=== PATIENT | female | born 1970 | race Two or more races ===

== ENCOUNTER 2024-06-14 10:59 | Emergency (ER) | payer MEDICAID ==
[~2024-06-14] VITALS: Ht 162.6 cm; Wt 64.9 kg
[2024-06-14 11:07] VITALS: BP 174/81; PULSE 106; RESP 16; TEMP 98.3; O2SAT 100
== END 2024-06-14 15:42 | disposition left against medical advice (07) ==
LOC: ER 11:00
DX: R10.84 Generalized abdominal pain (principal); Z53.21 Procedure and treatment not carried out due to patient leaving prior to being seen by health care provider